=== PATIENT | female | born 1980 | race Two or more races ===

== ENCOUNTER 2018-03-17 15:28 | Emergency (ER) | payer SELFPAY ==
[2018-03-17] MEDS ORDERED: ONDANSETRON 4 MG TAB.RAPDIS PO ONE (15:50)
[2018-03-17] MEDS ORDERED: NORMAL SALINE 1000 ML 1,000 ML IV ONE (15:50)
--- NOTE | 2018-03-17 15:52 | ER Document Report ---
ED Medical Screen (RME) - General Chief Complaint: Diarrhea Stated Complaint: FEVER,DIARRHEA,NAUSEA Time Seen by Provider: 03/17/18 15:46 Notes: RAPID MEDICAL EVALUATION DISCLOSURE I have seen this patient as part of a Rapid Medical Evaluation and, if applicable, placed any initially appropriate orders. The patient will be seen and fully evaluated, including a full history and physical exam, by a provider ( in Main ED or Fast Track) when a room becomes available. 37-year-old female here with complaints of nausea diarrhea abdominal cramping ongoing for the past 1-2 days. She has tried Pepto-Bismol for the symptoms with minimal relief. She has not had any vomiting fevers chills. No known sick contacts. She does not remember eating anything that may have made her sick. EXAM Tachycardic Argueta upper quadrant TTP No peritoneal signs TRAVEL OUTSIDE OF THE [place] IN LAST 30 DAYS: No - Related Data Allergies/Adverse Reactions: No Known Allergies Allergy (Verified 03/17/18 15:44) Past Medical History - Social History Chew tobacco use (# tins/day): No Frequency of alcohol use: None Drug Abuse: None Renal/ Medical History: Denies: Hx Peritoneal Dialysis Past Surgical History: Reports: Hx Appendectomy, Hx Tubal Ligation Physical Exam - Vital signs Vitals: Temp Pulse Resp BP Pulse Ox 99.4 F 109 H 20 99/59 L 99 03/17/18 15:34 03/17/18 15:34 03/17/18 15:34 03/17/18 15:34 03/17/18 15:34 Course - Vital Signs Vital signs: Temp Pulse Resp BP Pulse Ox 99.4 F 109 H 20 99/59 L 99 03/17/18 15:34 03/17/18 15:34 03/17/18 15:34 03/17/18 15:34 03/17/18 15:34
[2018-03-17 16:25] LABS: ABSOLUTE LYMPHOCYTES (AUTO) 0.9 10^3/uL (0.5-4.7); ABSOLUTE MONOCYTES (AUTO) 0.4 10^3/uL (0.1-1.4); BASOPHILS % (AUTO) 0.4 % (0-2); HEMATOCRIT 35.1 % (36.0-47.0); LYMPHOCYTES % (AUTO) 8.4 % (13-45); MEAN CORPUSCULAR HEMOGLOBIN 28.7 pg (27.0-33.4); MEAN CORPUSCULAR HGB CONC 34.2 g/dL (32.0-36.0); MEAN CORPUSCULAR VOLUME 84 fl (80-97); MONOCYTES % (AUTO) 3.9 % (3-13); PLATELET COUNT 352 10^3/uL (150-450); RED BLOOD COUNT 4.17 10^6/uL (3.72-5.28); RED CELL DISTRIBUTION WIDTH 13.5 % (11.5-14.0); SEGMENTED NEUTROPHILS % (AUTO) 87.3 % (42-78); TOTAL CELLS COUNTED % (AUTO) 100 %; WHITE BLOOD COUNT 10.3 10^3/uL (4.0-10.5)
[2018-03-17 16:46] LABS: ALANINE AMINOTRANSFERASE 18 U/L (9-52); ALBUMIN 4.4 g/dL (3.5-5.0); ALKALINE PHOSPHATASE 83 U/L (38-126); ANION GAP 12 (5-19); ASPARTATE AMINO TRANSFERASE 20 U/L (14-36); BILIRUBIN,DIRECT 0.3 mg/dL (0.0-0.4); BILIRUBIN,TOTAL 0.4 mg/dL (0.2-1.3); BLOOD UREA NITROGEN 9 mg/dL (7-20); CALCIUM 9.4 mg/dL (8.4-10.2); CARBON DIOXIDE 28 mmol/L (22-30); CHLORIDE 99 mmol/L (98-107); GLUCOSE 115 mg/dL (75-110); LIPASE 56.4 U/L (23-300); POTASSIUM 3.4 mmol/L (3.6-5.0); TOTAL PROTEIN 8.2 g/dL (6.3-8.2)
--- NOTE | 2018-03-17 17:09 | ER Document Report ---
ED GI/ <HUONG PADILLA - Last Filed: 03/17/18 20:01> - General Mode of Arrival: Ambulatory Information source: Patient TRAVEL OUTSIDE OF THE [place] IN LAST 30 DAYS: No <PAUL THAPA - Last Filed: 03/17/18 22:19> - General Chief Complaint: Diarrhea Stated Complaint: FEVER,DIARRHEA,NAUSEA Time Seen by Provider: 03/17/18 15:46 Notes: 37 y.o. female presents to the ED with nausea, diarrhea and lower abd cramping of onset yesterday. Pt also reports chills and a subjective fever. She states that she has tried taking Pepto-Bismol but was with minimal relief. Pt describes her diarrhea as water at first but now "marie". She reports more than 10 episodes of diarrhea today and states that her last episode of diarrhea was around 11:00 this morning. She denies having anything to eat today but reports drinking Gatorade. Pt denies any vomiting or diaphoresis as well as any positive contact with anyone of similar sx. Pt denies any medical issues or taking medications regularly at home. Pt does not have a PCP. She has a PSHx of tubal ligation and appendectomy. She reports her last menstrual period was early last month. 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 denies: Diaphoresis EENT: No symptoms reported Cardiovascular: No symptoms reported Respiratory: No symptoms reported Gastrointestinal: See HPI, Abdominal pain, Diarrhea, Nausea. denies: Vomiting Genitourinary: No symptoms reported Female Genitourinary: No symptoms reported Musculoskeletal: No symptoms reported Skin: No symptoms reported Hematologic/Lymphatic: No symptoms reported Neurological/Psychological: No symptoms reported -: Yes All other systems reviewed and negative <PAUL THAPA - Last Filed: 03/17/18 22:19> Physical Exam <HUONG PADILLA - Last Filed: 03/17/18 20:01> <PAUL THAPA - Last Filed: 03/17/18 22:19> - Vital signs Vitals: Temp Pulse Resp BP Pulse Ox 99.4 F 109 H 20 99/59 L 99 03/17/18 15:34 03/17/18 15:34 03/17/18 15:34 03/17/18 15:34 03/17/18 15:34 - Notes Notes: Physical Exam: General: Alert, appears well. HEENT: Normocephalic. Atraumatic. PERRL. Extraocular movements intact. Oropharynx clear. Neck: Supple. Non-tender. Respiratory: No respiratory distress. Clear and equal breath sounds bilaterally. Cardiovascular: Regular rate and rhythm. Abdominal: Soft, little obese. Diffusely mildly tender. No distension. Active Bowel Sounds. Back: Non-tender. No deformity or step off. Extremities: Moves all four extremities. Upper extremities: Normal inspection. Normal ROM. Lower extremities: Normal inspection. No edema. Normal ROM. Neurological: Normal cognition. AAOx3. Normal speech. Psychological: Normal affect. Normal Mood. Skin: Warm. Dry. Normal color. (PUAL THAPA) Course - Laboratory Result Diagrams: 03/17/18 16:11 03/17/18 16:11 - Diagnostic Test Radiology reviewed: Image reviewed, Reports reviewed - CT scan abdomen pelvis is read as unremarkable other than some debris noted in the dependent aspect of the bladder. <HUONG PADILLA - Last Filed: 03/17/18 20:01> - Laboratory Result Diagrams: 03/17/18 16:11 03/17/18 16:11 <PAUL THAPA - Last Filed: 03/17/18 22:19> - Re-evaluation Re-evalutation: 03/17/18 20:01 Patient is feeling much better after the IV fluids, she looks better, and her blood pressure has increased. She has not been able to have any diarrheal stool since she got here over 4 hours ago. (HUONG PADILLA) - Vital Signs Vital signs: Temp Pulse Resp BP Pulse Ox 98.4 F 85 16 112/63 100 03/17/18 20:22 03/17/18 20:22 03/17/18 20:22 03/17/18 20:22 03/17/18 20:22 - Laboratory Laboratory results interpreted by me: 03/17/18 03/17/18 03/17/18 16:11 16:11 16:11 Hct 35.1 L Seg Neutrophils % 87.3 H Lymphocytes % 8.4 L Absolute Neutrophils 9.0 H Potassium 3.4 L Glucose 115 H Urine Blood MODERATE H Discharge <HUONG PADILLA - Last Filed: 03/17/18 20:01> <PAUL THAPA - Last Filed: 03/17/18 22:19> - Discharge Clinical Impression: Hypotension Qualifiers: Hypotension type: unspecified hypotension type Qualified Code(s): I95.9 - Hypotension, unspecified Diarrhea Qualifiers: Diarrhea type: unspecified type Qualified Code(s): R19.7 - Diarrhea, unspecified Condition: Stable Disposition: HOME, SELF-CARE Additional Instructions: Diarrhea: Diarrhea means frequent, watery stools. There are many causes. Any problem that keeps the intestinal tract from absorbing water from the stool can lead to diarrhea. A sudden new diarrhea problem is usually caused by a virus, food sensitivity, toxic bacteria, or drugs. In this case, we expect the problem to go away soon. Testing is done only if you seem seriously ill from the diarrhea. If you have chronic diarrhea, or diarrhea that keeps coming back, we need to find out why. Chronic diarrhea can be due to inflammation of the bowels such as Crohn's disease or ulcerative colitis, food sensitivity such as intolerance to lactose or wheat protein, irritable bowel syndrome, and other problems. If your diarrhea is a significant problem but it's not clear why you have it, we' ll refer you to a specialist for further testing. During an episode of diarrhea, drink small amounts (two to six ounces) of clear liquids (soft drinks, sport drinks, herb teas, broth, etc). Take fluids frequently to prevent dehydration. It's usually not a problem to take mild anti- diarrhea medication such as Kaopectate or Pepto-Bismol. As the diarrhea eases, advance to small amounts of bland food (mashed potato, toast) for 24 hours. Call the physician if blood appears in your vomit or stool, if vomiting lasts longer than 24 hours, if the abdominal pain worsens or becomes localized to one area, if you develop high fever, or if you become lightheaded and weak. \\ Start the antibiotics as prescribed tomorrow. Drink plenty of cool clear liquids. Rest. Collect a stool specimen to turn into the lab for culturing. Follow-up with a local medical doctor if not improving. RETURN TO THE EMERGENCY ROOM IF ANY NEW OR WORSENING SYMPTOMS. Prescriptions: Metronidazole [Flagyl 500 mg Tablet] 500 mg PO TID #21 tablet Forms: Follow-Up Laboratory Testing, Return to Work Scribe Attestation: 03/17/18 18:02 I personally performed the services described in the documentation, reviewed and edited the documentation which was dictated to the scribe in my presence, and it accurately records my words and actions. (HUONG PADILLA) Scribe Documentation - Scribe Written by Alissa:: Alissa Lo 03/17/18 1745 acting as scribe for :: Jean <PAUL THAPA - Last Filed: 03/17/18 22:19>
[2018-03-17] MEDS ORDERED: DEXTROSE 5%-LACTATED RINGERS 1,000 ML IV ONE (17:45)
--- NOTE | 2018-03-17 17:55 | RADIOLOGY REPORT (SQ) ---
EXAM DESCRIPTION: CT ABD/PELVIS WITH IV ONLY COMPLETED DATE/TIME: 03/17/2018 5:41 pm REASON FOR STUDY: diffuse abd pain diarrhea; eval colitis diverticul COMPARISON: None. TECHNIQUE: CT scan of the abdomen and pelvis performed using helical scanning technique with dynamic intravenous contrast injection. No oral contrast. Images reviewed with lung, soft tissue, and bone windows. Reconstructed coronal and sagittal MPR images reviewed. Delayed images for evaluation of the urinary system also acquired. All images stored on PACS. All CT scanners at this facility use dose modulation, iterative reconstruction, and/or weight based d osing when appropriate to reduce radiation dose to as low as reasonably achievable (ALARA). [facility]: Dose Right [facility]: CareDose [facility]: Dose Right [facility]: Teradose 4D [facility]: Apozy CONTRAST TYPE AND DOSE: contrast/concentration: Isovue 370.00 mg/ml; Total Contrast Delivered: 80.0 ml; Total Saline Delivered: 68.0 ml RENAL FUNCTION: None required. The patient is less than 50 years old. RADIATION DOSE: CT Rad equipment meets quality standard of care and radiation dose reduction techniq ues were employed. CTDIvol: 8.9 - 12.4 mGy. DLP: 1137 mGy-cm.. LIMITATIONS: None. FINDINGS: LOWER CHEST: No significant findings. No nodules or infiltrates. LIVER: Normal size. No masses. No dilated ducts. SPLEEN: Normal size. No focal lesions. PANCREAS: No masses. No significant calcifications. No adjacent inflammation or peripancreatic fluid collections. Pancreatic duct not dilated. GALLBLADDER: Gallstones. No inflammatory changes to suggest cholecystitis. ADRENAL GLANDS: No significant masses or asymmetry. RIGHT KIDNEY AND URETER: No solid masses. No significant calcifications. No hydronephrosis or hyd roureter. LEFT KIDNEY AND URETER: No solid masses. No significant calcifications. No hydronephrosis or hydr oureter. AORTA AND VESSELS: No aneurysm. No dissection. Renal arteries, SMA, celiac without stenosis. RETROPERITONEUM: No retroperitoneal adenopathy, hemorrhage or masses. BOWEL AND PERITONEAL CAVITY: No masses or inflammatory changes. No free fluid or peritoneal masses. APPENDIX: Surgically absent. PELVIS: No mass. No free fluid. Areas of low attenuation noted within the dependent portion of the bladder best seen on series 5, image 70 to, 76 through 79, and 80. ABDOMINAL WALL: No masses. No hernias. BONES: No significant or acute findings. OTHER: No other significant finding. IMPRESSION: NO ACUTE INFLAMMATORY CHANGE IDENTIFIED ON THIS CONTRAST-ENHANCED CT THE ABDOMEN PELVIS. AREAS OF LOW ATTENUATION NOTED WITHIN DEPENDENT PORTIONS OF THE BLADDER ON DELAYED IMAGING DETAILE D ABOVE COULD REPRESENT MIXING ARTIFACT OR DEBRIS. CORRELATE WITH URINALYSIS. TECHNICAL DOCUMENTATION: JOB ID: [id number] Quality ID # [id number]: Final reports with documentation of one or more dose reduction techniques (e.g., Au tomated exposure control, adjustment of the mA and/or kV according to patient size, use of iterative reconstruction technique) 2010 [employer]- All Rights Reserved Reading location - IP/workstation name: [email or web address]
[2018-03-17 19:29] LABS: APPEARANCE,URINE SLIGHTLY-CLOUDY; BILIRUBIN,URINE NEGATIVE (NEGATIVE); COLOR,URINE YELLOW; GLUCOSE, URINE NEGATIVE (NEGATIVE); KETONES,URINE NEGATIVE (NEGATIVE); LEUKOCYTE ESTERASE,URINE NEGATIVE (NEGATIVE); NITRITE,URINE NEGATIVE (NEGATIVE); PROTEIN,URINE NEGATIVE (NEGATIVE); URINE SPECIFIC GRAVITY 1.019; UROBILINOGEN,URINE NEGATIVE mg/dL (<2.0)
[2018-03-17] MEDS ORDERED: METRONIDAZOLE 500 MG TABLET PO ONE (20:05)
[2018-03-17 20:23] VITALS: BP 112/63
== END 2018-03-17 20:29 | disposition home or self-care (01) ==
LOC: ER 15:28
DX: R19.7 Diarrhea, unspecified (principal); I95.9 Hypotension, unspecified; R10.30 Lower abdominal pain, unspecified; R10.817 Generalized abdominal tenderness; R11.0 Nausea; R68.83 Chills (without fever); Z98.51 Tubal ligation status; Z90.49 Acquired absence of other specified parts of digestive tract
CPT/HCPCS: 99284; 96360; 96361; 36415; 87040; 83690; 85025; 81025; 80053; 81001; 83605; 74177; S0119; J7030